=== PATIENT | male | born 1970 ===

== ENCOUNTER 2019-12-06 20:31 | Emergency (ER) | payer OTHER, SELFPAY ==
--- NOTE | 2019-12-06 20:37 | ECG_ITS ---
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 Measurements Intervals [place] Rate: 72 P: 53 KS: 182 QRS: -28 QRSD: 119 T: 87 QT: 390 QTc: 429 Interpretive Statements SINUS RHYTHM BORDERLINE LEFT AXIS DEVIATION [QRS AXIS < -20] MODERATE INTRAVENTRICULAR CONDUCTION DELAY [110+ ms QRS DURATION] NONSPECIFIC ST & T-WAVE ABNORMALITY Compared to ECG 03/29/2019 13:34:53 Intraventricular conduction delay now present T-wave abnormality still present Electronically Signed On 12-07-2019 9:39:43 CDT by Yuri Narvaez M.D. [id number] f
--- NOTE | 2019-12-06 20:37 | XRR_ITS ---
PROCEDURE INFORMATION: Exam: XR Chest, 1 View Exam date and time: 12/06/2019 9:03 PM Age: 49 years old Clinical indication: Other: On rest and exertion; Patient HX: C/O chest pain and epigastric pain. Diaphoresis TECHNIQUE: Imaging protocol: XR of the chest Views: 1 view. COMPARISON: CR Chest 1 [place] [id number] 03/29/2019 1:59 PM FINDINGS: Lungs: No lung consolidation or pulmonary edema. Pleural space: No pleural effusion or pneumothorax. Heart/Mediastinum: The cardiac silhouette is not enlarged. The mediastinal contours are normal. Bones/joints: No acute osseous abnormality. Soft tissues: There is a left epicardial fat pad. XR/XR chest 1V portable [id number] IMPRESSION: No acute abnormality.
[2019-12-06 20:42] VITALS: BP 190/93; PULSE 72; RESP 18; TEMP 36.5; O2SAT 95; BMI 38.5
[2019-12-06 20:49] LABS: Basophils # 0.1 10^3/uL (0.0-0.1); Basophils % 0.7 %; Eosinophils # 0.1 10^3/uL (0.0-0.8); Eosinophils % 1.1 %; Hematocrit 48.5 % (42.0-52.0); Hemoglobin 17.3 g/dL (11.7-16.6); Lymphocytes % 37.7 %; Mean Corpuscular HGB Conc 35.7 g/dL (30.0-36.0); Mean Corpuscular Volume 89.6 fL (80-94); Mean Platelet Volume 11.1 fL (7.4-10.4); Monocytes # 0.9 10^3/uL (0.2-0.9); Monocytes % 8.8 %; Neutrophils # 5.4 10^3/uL (1.8-7.7); Neutrophils % 51.5 %; Nucleated Red Blood Cells % 0 %; Platelet Count 216 10^3/cmm (130-400); Red Blood Count 5.41 10^6/uL (4.1-5.3); Red Cell Distribution Width 12.2 % (12.1-15.1); White Blood Count 10.5 10^3/uL (4.0-10.0)
[2019-12-06] MEDS: aspirin 325 mg Tablet PO (21:00)
[2019-12-06 21:13] LABS: Alanine Aminotransferase 115 U/L (0-41); Albumin Level 4.4 g/dL (3.5-5.2); Alkaline Phosphatase 88 IU/L (40-130); Anion Gap 20.1 (5-19); Aspartate Amino Transferase 50 U/L (0-40); Blood Urea Nitrogen 14 mg/dL (6-20); Calcium 9.6 mg/dL (8.5-10.5); Carbon Dioxide 27 mmol/L (22-29); Chloride 95 mmol/L (98-107); Glomerular Filtration Rate 79.1 mL/min (90-130); Glucose 105 mg/dL (65-115); Osmolality Calculated 285 mOsm/kg (285-295); Potassium 3.1 mmol/L (3.5-5.1); Sodium 139 mmol/L (136-145); Total Bilirubin 0.5 mg/dL (0.15-1.2); Total Protein 8.4 g/dL (6.6-8.7)
[2019-12-06 21:15] LABS: Troponin(5th) Baseline 13 ng/L (0-15)
[2019-12-06 21:23] LABS: NT Pro B Type Natriuretic Pept 5 pg/mL (0-125)
[2019-12-06 21:26] LABS: Creatine Phosphokinase 404 U/L (39-308)
--- NOTE | 2019-12-06 21:28 | PC.NURSE ---
critical lab CK 404. Dr notified
[2019-12-06] MEDS: lidocaine 2% viscous 15 ML, aluminum-mag hydrox-simethicon 30 ML, sucralfate oral liq 1 GM PO (22:58)
[2019-12-06] MEDS: nitroglycerin 0.4 mg sublingual Tablet SUBLINGUAL (22:58)
[2019-12-06 23:01] VITALS: BP 167/81; PULSE 75; RESP 18; O2SAT 92
[2019-12-06 23:01] LABS: D Dimer 0.22 ug/mIFEU (0-0.59)
[2019-12-06] MEDS: potassium chloride ER 10 mEq Tablet 40 MEQ PO (23:33)
[2019-12-06 23:35] LABS: Troponin 5 2HR 11.47 ng/L (0-15)
[2019-12-06 23:40] LABS: Troponin 5 2HR Delta -1.53 ABS# (0-10)
[2019-12-07 00:30] VITALS: BP 146/103; PULSE 78; RESP 18; O2SAT 98
--- NOTE | 2019-12-07 05:36 | ED_ITS ---
HPI - Chest Pain General: Chief Complaint: Chest Pain Stated Complaint: CP Time Seen by Provider: 12/06/19 20:41 History of Present Illness: HPI narrative: 49-year-old male with no prior history of coronary disease. He presents with chest and epigastric pain on and off for several hours today. He notes that he has had pain for about the last week or so here and there. He gives a history of having to take furosemide ever since he had tick fever . This was a couple of years ago. He states that he gets short of breath with activity such as walking to his car couple of times. This is an ongoing problem he has had a negative stress test a year ago. And negative angiography around 3 years ago MD complaint: chest pain Onset (ago): day(s) Timing of current episode: episodic Prior episodes: Yes Onset: during rest and during exertion Pain location: substernal and epigastric Pain radiation: none Severity: moderate Quality: tightness, aching and heaviness Exacerbating factors: exertion Associated symptoms: Reports diaphoresis, leg edema and nausea; Deny dyspnea, palpitations or vomiting Review of Systems Const: Reports: diaphoresis Eyes: Denies: change in vision ENMT: Denies: swelling of lips/tongue, change in hearing or sinus pain Card: Reports: chest pain, edema, swelling of feet/ankles and dyspnea on exertion; Denies: palpitations, irregular heart rhythm or orthopnea Resp: Denies: dyspnea, non-productive cough or wheezing GI: Reports: nausea; Denies: vomiting : Denies: difficulty urinating or hematuria Musc: Denies: neck pain or back pain Skin/Breast: Denies: rash, pruritus or erythema Neuro: Reports: dizziness; Denies: headache(s) or vertigo Psych: Denies: anxiety PFSH ED PFSH: Social History Smoking and tobacco status: former smoker Physical Exam Const: GENERAL APPEARANCE: well developed ORIENTATION/CONSCIOUSNESS: Yes oriented to person, Yes oriented to place and Yes oriented to time HENMT: COMMON NORMALS: normocephalic, external ears normal and Normal external nose present HEAD & SCALP: normocephalic; no scalp tenderness FACE & SINUS: normal facial exam NOSE: Normal external nose present and No nasal discharge present EXTERNAL EAR: Yes external ears normal MOUTH: tongue normal Eye: COMMON NORMALS: Equal, round and reactive pupils present, EOMs intact bilaterally and conjunctivae normal EYELID: eyelids normal CONJUNCTIVA: Yes conjunctivae normal PUPIL: Yes Equal, round and reactive pupils present Neck/C-Spine: GENERAL: No tracheal deviation Chest: COMMONS NORMALS: normal inspection of the chest CHEST: No tenderness Resp: COMMON NORMALS: clear to auscultation bilaterally EFFORT & INSPECTION: No tachypneic, No respiratory distress, No retractions, No uses accessory muscles and No tracheal deviation AUSCULTATION: clear to auscultation bilaterally, no rhonchi, no wheezes and lung sounds not diminished Cardio: COMMON NORMALS: regular rate and regular rhythm RATE: regular rate RHYTHM: regular rhythm HEART SOUNDS: no murmurs PERIPHERAL PULSES: radial pulses present GI: INSPECTION: No abdominal distension AUSCULTATION: No Hyperactive bowel sounds present and No Hypoactive bowel sounds present PALPATION: Yes Tenderness to palpation present (GI) (Mild epigastric), No Guarding due to palpation present (GI) and No Rigid due to palpation PERCUSSION: no dullness to percussion and no tympanic to percussion Neuro: SENSORIUM/ORIENTATION: Yes oriented to person, Yes oriented to place and Yes oriented to time Psych: COMMON NORMALS: mental status grossly normal Skin: COMMON NORMALS: no rashes or lesions noted GENERAL SKIN EXAM: no rashes or lesions noted Course Vital Signs: Vital signs: Vital Signs Temperature 97.7 F 12/06/19 20:42 Pulse Rate 78 12/07/19 00:30 Respiratory Rate 18 12/07/19 00:30 Blood Pressure 146/103 12/07/19 00:30 Pulse Oximetry 98 12/07/19 00:30 MDM - Chest Pain MDM Narrative: Medical decision making narrative: 49-year-old male with a history of chest discomfort. He also has some shortness of breath with exertion and diaphoresis. His EKG shows a sinus rhythm with no acute ST changes. His first troponin is negative with no change in the second. His d-dimer is negative. His chest x-ray is negative. His potassium is 3.1, and is repleted. This may be because he is on 80 of Lasix twice a day as well as hydrochlorothiazide. His blood pressure was high on arrival, and slowly improved. This may be a source of his chest pain as well. 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 Lab Data: Labs: Lab Results 12/06/19 12/06/19 12/06/19 Range/Units 20:43 20:43 20:43 WBC 10.5 H (4.0-10.0) 10^3/ uL RBC 5.41 H (4.1-5.3) 10^6/u L Hgb 17.3 H (11.7-16.6) g/dL Hct 48.5 (42.0-52.0) % MCV 89.6 (80-94) fL MCH 32.0 (28.0-34.0) pg MCHC 35.7 (30.0-36.0) g/dL RDW 12.2 (12.1-15.1) % Plt Count 216 (130-400) 10^3/c mm MPV 11.1 H (7.4-10.4) fL Neut % (Auto) 51.5 % Lymph % (Auto) 37.7 % [place] % (Auto) 8.8 % Eos % (Auto) 1.1 % Baso % (Auto) 0.7 % Neut # (Auto) 5.4 (1.8-7.7) 10^3/u L Lymph # (Auto) 4.0 (0.8-4.8) 10^3/u L [place] # (Auto) 0.9 (0.2-0.9) 10^3/u L Eos # (Auto) 0.1 (0.0-0.8) 10^3/u L Baso # (Auto) 0.1 (0.0-0.1) 10^3/u L Nucleated RBC % (a uto) 0 % Nucleated RBCs # 0.0 /100WBC D-Dimer (0-0.59) ug/mIFE U Sodium 139 (136-145) mmol/L Potassium 3.1 L (3.5-5.1) mmol/L Chloride 95 L (98-107) mmol/L Carbon Dioxide 27 (22-29) mmol/L Anion Gap 20.1 H (5-19) BUN 14 (6-20) mg/dL Creatinine 1.0 (0.7-1.2) mg/dL GFR Calculation 79.1 L (90-130) mL/min Glucose 105 (65-115) mg/dL Calculated Osmolal ity 285 (285-295) mOsm/k g Calcium 9.6 (8.5-10.5) mg/dL Total Bilirubin 0.5 (0.15-1.2) mg/dL AST 50 H (0-40) U/L ALT 115 H (0-41) U/L Alkaline Phosphata se 88 (40-130) IU/L Creatine Kinase (39-308) U/L Troponin T Baselin e 13 (0-15) ng/L Troponin T 120 Min yocha dehe (0-15) ng/L Delta Troponin T (0-10) ABS# NT-Pro-B Natriuret Pep (0-125) pg/mL Total Protein 8.4 (6.6-8.7) g/dL Albumin 4.4 (3.5-5.2) g/dL Globulin 4.0 (1.3-4.6) g/dL 12/06/19 12/06/19 12/06/19 Range/Units 20:43 20:43 22:55 WBC (4.0-10.0) 10^3/ uL RBC (4.1-5.3) 10^6/u L Hgb (11.7-16.6) g/dL Hct (42.0-52.0) % MCV (80-94) fL MCH (28.0-34.0) pg MCHC (30.0-36.0) g/dL RDW (12.1-15.1) % Plt Count (130-400) 10^3/c mm MPV (7.4-10.4) fL Neut % (Auto) % Lymph % (Auto) % [place] % (Auto) % Eos % (Auto) % Baso % (Auto) % Neut # (Auto) (1.8-7.7) 10^3/u L Lymph # (Auto) (0.8-4.8) 10^3/u L [place] # (Auto) (0.2-0.9) 10^3/u L Eos # (Auto) (0.0-0.8) 10^3/u L Baso # (Auto) (0.0-0.1) 10^3/u L Nucleated RBC % (a uto) % Nucleated RBCs # /100WBC D-Dimer 0.22 (0-0.59) ug/mIFE U Sodium (136-145) mmol/L Potassium (3.5-5.1) mmol/L Chloride (98-107) mmol/L Carbon Dioxide (22-29) mmol/L Anion Gap (5-19) BUN (6-20) mg/dL Creatinine (0.7-1.2) mg/dL GFR Calculation (90-130) mL/min Glucose (65-115) mg/dL Calculated Osmolal ity (285-295) mOsm/k g Calcium (8.5-10.5) mg/dL Total Bilirubin (0.15-1.2) mg/dL AST (0-40) U/L ALT (0-41) U/L Alkaline Phosphata se (40-130) IU/L Creatine Kinase 404 H* (39-308) U/L Troponin T Baselin e (0-15) ng/L Troponin T 120 Min yocha dehe 11.47 (0-15) ng/L Delta Troponin T -1.53 L (0-10) ABS# NT-Pro-B Natriuret Pep 5 (0-125) pg/mL Total Protein (6.6-8.7) g/dL Albumin (3.5-5.2) g/dL Globulin (1.3-4.6) g/dL Discharge Plan Discharge Patient Disposition: Home, Self-Care Clinical Impression: Hypokalemia Chest pain Qualifiers: Chest pain type: unspecified Qualified Code(s): R07.9 - Chest pain, unspecified Condition: Stable Prescriptions: No Action furosemide 80 mg tablet 80 mg PO BID Qty: 180 RF: 3 carvedilol 6.25 mg tablet 6.25 mg PO BID 90 Days Qty: 180 RF: 3 potassium chloride 20 mEq tablet extended release 20 meq PO BID Qty: 180 RF: 3 hydrochlorothiazide 25 mg Tablet 25 mg PO DAILY RF: 0 Discharge Orders: Discharge Order (Routine); Ordered 12/07/19 Ordered By: Adithya Mak Referrals: Guadalupe Holbrook FNP [Primary Care Provider] - Sheela Stevens MD [Physician] - 4-7 days Discharge Diet: Usual diet Discharge Activity: Increase activity as tolerated Patient Instructions: Chest Pain (ED), Hypokalemia (ED) Activity Restrictions/Additional Instructions: Return for return of her worsening chest pain, shortness of breath, fever greater than 100, dizziness, other concerning symptoms. Check your blood pressure twice daily, report numbers to your physician. You may need your potassium redrawn this coming week. Discharge Date/Time: 12/07/19 00:31 Coding Level of Care Code ED [employer] for Virgie Baldwin
== END 2019-12-07 00:31 | disposition home or self-care (01) ==
PROVIDERS: Physician Assistant; Emergency Provider Emergency Medicine; PCP Registered Nurse
DX: R07.9 Chest pain, unspecified (principal); E87.6 Hypokalemia; Z87.891 Personal history of nicotine dependence
CPT/HCPCS: 12345; 71045; 80053; 82550; 83880; 84484; 85025; 85378; 93005; 99283; 99284

== ENCOUNTER → 2019-12-17 09:16 | Outpatient (BNVA) | payer OTHER, SELFPAY | PROVIDERS: PCP Registered Nurse; Visit Provider Internal Medicine Cardiovascular Disease | DX: I50.30 Unspecified diastolic (congestive) heart failure (principal) | CPT/HCPCS: 80048; 83735; 83880 ==

== ENCOUNTER → 2020-11-18 11:37 | Outpatient (BNVA) | payer OTHER, SELFPAY | PROVIDERS: PCP Registered Nurse; Visit Provider Internal Medicine Cardiovascular Disease | DX: I10 Essential (primary) hypertension (principal); I50.32 Chronic diastolic (congestive) heart failure; R07.9 Chest pain, unspecified; G47.33 Obstructive sleep apnea (adult) (pediatric); K21.9 Gastro-esophageal reflux disease without esophagitis | CPT/HCPCS: 80053; 80061; 83735; 83880; 85025 ==